=== PATIENT | female | born 1965 | race Two or more races ===

== ENCOUNTER 2016-08-09 16:44 | Emergency (ER) | payer MEDICAID ==
[~2016-08-09] VITALS: Ht 160 cm; Wt 70.3 kg
[2016-08-09 17:17] VITALS: BP 125/71
[2016-08-09] MEDS ORDERED: ALPRAZOLAM 0.5 MG TABLET PO ONE ×2 (18:30→18:45)
[2016-08-09] MEDS ORDERED: ALPR2TAB2 PO (19:00)
--- NOTE | 2016-08-09 19:00 | PHYS DOC ---
Past Medical History Past Medical History: Anxiety, Asthma, Diabetes-Type II Past Surgical History: No Surgical History Alcohol Use: None Drug Use: None Adult General Chief Complaint Chief Complaint: ANXIETY/PANIC ATTACK HPI HPI Patient is a 51 year old female who presents with anxiety for 2 days. When asked what has caused her anxiety, she states that her 19-year-old daughter is in [place] alone. The patient also recently lost her brother and [id number] from a motor vehicle accident. The patient has a history of Xanax and has been prescribed Ativan and Xanax for her anxiety. She only takes 1 of these medications at a time. She states that the Xanax helps control her anxiety better. She is currently visiting family from [place]. She states that her current symptoms are similar to symptoms that she has had associated with her anxiety in the past. She feels numbness in her face bilaterally with a dry mouth and dry throat. She has a sharp pain in her chest under the left breast that is intermittent and rated as a 1/10. Her symptoms are always relieved by her anxiety medications. She has a history of diabetes but denies hypertension, hyperlipidemia, or coronary artery disease. She reports a normal cardiac catheterization within the last 2 years. The patient is Turkmen-speaking. The language line was used with interpreter and translator [id number]. Review of Systems Review of Systems Constitutional: Denies fever or chills. [] Eyes: Denies change in visual acuity, redness, or eye pain. [] HENT: Denies ear pain, nasal congestion or sore throat. Reports dry mouth and dry throat. Respiratory: Denies cough. Reports shortness of breath. Cardiovascular: Denies palpitations or edema. Reports chest pain. GI: Denies abdominal pain, nausea, vomiting, bloody stools or diarrhea. [] : Denies dysuria, hematuria or urinary frequency. [] Musculoskeletal: Denies back pain or joint pain. [] Integument: Denies rash or skin lesions. [] Neurologic: Denies headache, focal weakness. Reports bilateral facial numbness. Endocrine: Denies polyuria or polydipsia. [] Psych: Denies depression. Reports anxiety. All systems reviewed and negative unless otherwise stated in the HPI. Current Medications Current Medications Current Medications Medications (Trade) Dose Ordered Sig/Gisela Start Time Stop Time Status Last Admin Dose Admin Alprazolam (Xanax) 1 mg 1X ONCE 08/09/16 18:45 08/09/16 18:46 DC 08/09/16 18:43 1 MG Allergies Allergies Allergies Coded Allergies Type Severity Reaction Last Updated Verified No Known Drug Allergies 08/09/16 No Physical Exam Physical Exam Constitutional: Well developed, well nourished, no acute distress, non-toxic appearance. [] HENT: Normocephalic, atraumatic, bilateral external ears normal, oropharynx moist, no oral exudates, nose normal. [] Eyes: PERRLA, EOMI, conjunctiva normal, no discharge. [] Neck: Normal range of motion, no tenderness, supple, no stridor. [] Cardiovascular: Heart rate regular rhythm, no murmur [] Lungs & Thorax: Bilateral breath sounds clear to auscultation without wheezes, rales, or rhonchi. There is no chest wall tenderness. Abdomen: Bowel sounds normal, soft, no tenderness, no masses, no pulsatile masses. [] Skin: Warm, dry, no erythema, no rash. [] Back: No tenderness, no CVA tenderness. [] Extremities: No tenderness, no cyanosis, no clubbing, ROM intact, no edema. [] Neurologic: Alert and oriented X 3, normal motor function, normal sensory function, no focal deficits noted. CN II-XII grossly intact. Psychologic: Affect anxious, judgement normal. No SI or HI. Current Patient Data Vital Signs Vital Signs Date Time Temp Pulse Resp B/P Pulse Ox O2 Delivery O2 Flow Rate FiO2 08/09/16 17:17 98.4 90 20 125/71 97 Room Air 98.4 Lab Values Laboratory Tests Test 08/09/16 18:28 POC Troponin I 0.00ng/ml (<0.08) EKG EKG EKG at 1817. Heart rate 85 bpm. Sinus rhythm without any acute ischemic changes or STEMI, as interpreted by Dr. Armijo. Radiology/Procedures Radiology/Procedures [] Course & Med Decision Making Course & Med Decision Making Pertinent Labs and Imaging studies reviewed. (See chart for details) Patient with history of anxiety presents with 2 days of increased anxiety with recent stress in her life. She is out of her usual anxiety medications. The symptoms she describes are the same that she has had previously with her anxiety and improve with anxiety medication. She reports chest pain and shortness of breath. Evaluation in the emergency department today reveals EKG without any ischemic changes or STEMI. I-STAT troponin was 0. The patient improved with oral Xanax. She is discharged home with prescription for Xanax. Return precautions were discussed. She verbalizes understanding and agrees with plan. Dragon Disclaimer Dragon Disclaimer This electronic medical record was generated, in whole or in part, using a voice recognition dictation system. Departure Departure Impression: Primary Impression: Anxiety Disposition: HOME, SELF-CARE Condition: IMPROVED Referrals: NO PCP (PCP) Patient Instructions: Anxiety and Panic Attacks, [id number] Scripts Alprazolam (Xanax)2 Mg Tablet1 Tab PO DAILY #20 TAB Prov:VENU DE JESUS 08/09/16 VENU DE JESUS Aug 09, 2016 19:00
--- NOTE | 2016-08-10 07:06 | EKG ---
[facility] [address] [place] [address] Test Date: 2016-08-09 Test Time: 18:17:58 Pat Name: MELISSA TRINIDAD Department: Room: Gender: Female Panelbeater: : 1965 Requested By: VENU DE JESUS Order Number: [id number] Reading MD: Colleen Liu Measurements Intervals [place] Rate: 85 P: 21 MO: 162 QRS: -28 QRSD: 100 T: 42 QT: 380 QTc: 452 Interpretive Statements SINUS RHNTHM. MISSING LEAD V4. OTHERWISE NORMAL EKG Electronically Signed On 08-11-2016 20:47:44 CDT by Colleen Liu
== END 2016-08-09 19:09 | disposition home or self-care (01) ==
LOC: ER 16:44
DX: F41.9 Anxiety disorder, unspecified (principal); F43.9 Reaction to severe stress, unspecified; R07.89 Other chest pain; R06.02 Shortness of breath; R20.0 Anesthesia of skin; R68.2 Dry mouth, unspecified; J39.2 Other diseases of pharynx; J45.909 Unspecified asthma, uncomplicated; E11.9 Type 2 diabetes mellitus without complications; Z79.899 Other long term (current) drug therapy
CPT/HCPCS: 84484; 93005; 99284-25